=== PATIENT | male | born 1965 | race Caucasian/White ===

== ENCOUNTER → 2016-11-24 | Outpatient (CLI) | payer OTHER ==
[2014-07-09 15:06] VITALS: BP 106/79
[~2016-11-24] MED LIST: ASPI-482 PO; FENO145T PO; LIPITOR80 MG PO; OMEG-57 PO; OXYC-323 PO; UBID30CA9 PO
--- NOTE | 2016-11-24 16:27 | PCVCIMAG ---
APPROVED REPORT Exam: Stress Echocardiogram Indication: CAD Patient Location: Echo lab Stress Nurse: Claudia Garcia RN Status: routine HR: 96 bpm Rhythm: NSR Medical History Medical History: CAD non obstructive, Hyperlipidemia Cardiac Risk Factors: male over 50 yrs,, Hyperlipidemia,elevated coronary calcium score Pretest Chest Pain Characteristics: No chest pain Exercise History: Physically active Procedure The patient underwent an Exercise Stress Test using the Jayden Protocol. Blood pressure, heart rate, and EKG were monitored. An Echocardiogram was performed by airdrop systems technician in four stages in quad fashion. At peak stress, four selected images were obtained and placed side by side with resting images for comparison. Stress Test Details Stress Test: Exercise stress testing was performed using a Jayden protocol. HR Resting HR: 96 bpmMax Heart Rate (APMHR): 169 bpm Max HR Achieved: 176 bpmTarget HR (85% APMHR): 143 bpm % of APMHR: 104 Recovery HR: 105 bpm HR response to stress: Normal HR response to stress BP Resting BP: 144/84 mmHg Max BP: 182/84 mmHg Recovery BP: 142/88 mmHg ECG Resting ECG: Sinus Rhythm Stress ECG: Sinus Rhythm ST Change: Nondiagnostic ST abnormalities Arrhythmia: Rare PVC Recovery ECG: Sinus Rhythm Recovery ST Change: Non-ischemic Recovery Arrhythmia: None Clinical Reason for Termination: Maximal effort Stress Symptoms: none Exercise duration: 14 min 05 sec Highest Stage Achieved: Stage 5: 5.0 mph at 18% grade. Exercise capacity: 17.5 METs Overall Exercise Capacity for Age: Excellent Scale: Active Angina Score: None Pre-Stress Echo The resting Echocardiogram showed normal left ventricular contractility with an estimated Ejection Fraction of about 55-60%. Normal wall motion in all segments on baseline images. Post-Stress Echo The stress Echocardiogram showed normalnormal left ventricular contractility with an estimated Ejection Fraction of about 65-70%. Normal augmentation of wall motion in all segments on post stress images. Clinical No clinical or ECG evidence for ischemia. Conclusion Clinical Response: Non-ischemic Exercise Capacity: Superior Stress ECG Response: Non-ischemic Stress Echo Images: Non-ischemic
== END | disposition home or self-care (01) ==
LOC: PCVCIMAG 15:04
PROVIDERS: ATTEND Internal Medicine Cardiovascular Disease
DX: I49.3 Ventricular premature depolarization (principal); I25.10 Atherosclerotic heart disease of native coronary artery without angina pectoris; E78.00 Pure hypercholesterolemia, unspecified; J45.909 Unspecified asthma, uncomplicated; Z90.49 Acquired absence of other specified parts of digestive tract; Z79.82 Long term (current) use of aspirin
CPT/HCPCS: 36415; 93325; 93351; G0463

== ENCOUNTER → 2017-11-23 | Outpatient (CLI) | payer OTHER | END | disposition home or self-care (01) | LOC: PCVCCLINIC 15:00 | DX: I25.10 Atherosclerotic heart disease of native coronary artery without angina pectoris (principal); E78.00 Pure hypercholesterolemia, unspecified; R60.9 Edema, unspecified; R94.31 Abnormal electrocardiogram [ECG] [EKG]; Z79.82 Long term (current) use of aspirin; Z79.899 Other long term (current) drug therapy | CPT/HCPCS: 93005; G0463 ==

== ENCOUNTER → 2019-01-10 | Outpatient (CLI) | payer OTHER ==
[2014-07-09 15:06] VITALS: BP 106/79
[~2019-01-10] MED LIST changes: -OXYC-323 PO; +OXYC1TAB15 PO
--- NOTE | 2019-01-10 09:36 | PCVCIMAG ---
APPROVED REPORT Study performed: 01/10/2019 08:40:05 EXAM: Comprehensive 2D, Doppler, and color-flow Echocardiogram Patient Location: Echo lab Room #: 2Status: routine BSA: 2.39 HR: 84 bpmBP: 122/80 mmHg Rhythm: NSR Other Information Study Quality: Good Risk Factors: Cardiac Risk Factors: HTN, Hyperlipidemia Indications CAD Peripheral Edema Hypertension/HDD 2D Dimensions IVSd: 8.86 (7-11mm)LVOT Diam: 23.60 (18-24mm) LVDd: 45.21 mm PWd: 9.18 (7-11mm)Ascending Ao: 38.20 (22-36mm) LVDs: 29.52 (25-40mm) Left Atrium: 37.49 (27-40mm) Aortic Root: 27.73 mm LV Single Plane 4CH: 55.74 % LV Single Plane 2CH: 61.89 % Biplane EF: 59.1 % Volumes Left Atrial Volume (Systole) Single Plane 4CH: 56.13 mLSingle Plane 2CH: 62.29 mL Biplane LA Volume: 60.00 mLLA ESV Index: 25.00 mL/m2 Aortic Valve AoV Peak Tristan.: 1.25 m/s AO Peak Gr.: 6.24 mmHgLVOT Max P.61 mmHg LVOT Max V: 0.95 m/s ELYSE Vmax: 3.32 cm2 Mitral Valve E/A Ratio: 0.9 MV Decel. Time: 131.77 ms MV E Max Tristan.: 0.63 m/s MV A Tristan.: 0.73 m/s IVRT: 62.28 ms TDI E/Lateral E': 9.00E/Medial E': 15.75 Medial E' Tristan.: 0.04 m/s Lateral E' Tristan.: 0.07 m/s Pulmonary Valve PV Peak Tristan.: 1.33 m/sPV Peak Gr.: 7.04 mmHg Pulmonary Vein P Vein S: 0.50 m/sP Vein A: 0.32 m/s P Vein D: 0.30 m/sP Vein A Dur.: 90.0 msec P Vein S/D Ratio: 1.67 Tricuspid Valve TV Vmax: 0.52 m/s Left Ventricle The left ventricle is normal size. There is normal LV segmental wall motion. There is normal left ventricular wall thickness. Left ventricular systolic function is normal. The left ventricular ejection fraction is within the normal range. LVEF is 55-60%. Right Ventricle The right ventricle is normal size. The right ventricular systolic function is normal. Atria The left atrium size is normal. The right atrium size is normal. Aortic Valve Aortic valve is trileaflet. The aortic valve is normal in structure and function. No aortic regurgitation is present. There is no aortic valvular stenosis. Mitral Valve The mitral valve is normal in structure. There is no mitral valve regurgitation noted. No evidence of mitral valve stenosis. Tricuspid Valve The tricuspid valve is normal in structure. There is no tricuspid valve regurgitation noted. Pulmonic Valve The pulmonary valve is normal in structure. There is no pulmonic valvular regurgitation. Great Vessels The aortic root is normal in size. The ascending aorta is normal in size. Aortic arch is normal in caliber. IVC is normal in size and collapses >50% with inspiration. Pericardium There is no pericardial effusion. There is no pleural effusion. <Conclusion> The left ventricle is normal size. There is normal left ventricular wall thickness. Left ventricular systolic function is normal. The right ventricle is normal size. The left atrium size is normal. The aortic valve is normal in structure and function. There is no mitral valve regurgitation noted. There is no tricuspid valve regurgitation noted.
== END | disposition home or self-care (01) ==
LOC: PCVCIMAG 08:40
PROVIDERS: ATTEND Internal Medicine Cardiovascular Disease
DX: I25.10 Atherosclerotic heart disease of native coronary artery without angina pectoris (principal); I10 Essential (primary) hypertension; E78.00 Pure hypercholesterolemia, unspecified; J45.909 Unspecified asthma, uncomplicated; R60.9 Edema, unspecified; Z79.82 Long term (current) use of aspirin
CPT/HCPCS: 93005; 93306; G0463

== ENCOUNTER → 2021-04-14 | Outpatient (CLI) | payer OTHER ==
[2014-07-09 15:06] VITALS: BP 106/79
--- NOTE | 2021-04-14 11:31 | KCIC ---
STUDY: MRI of the left foot without contrast INDICATION: Left foot pain. COMPARISON: None. TECHNIQUE: Multiplanar MR imaging of the left foot performed without the use of intravenous contrast. FINDINGS: Bones: Minimal marrow edema without a fracture at the plantar calcaneus adjacent to the plantar fasci a origin. No fracture or marrow contusion elsewhere throughout the imaged foot or at the ankle. No hi gh-grade chondral defect at the ankle or subchondral marrow edema/cystic change. Musculotendinous: Intact and normally located flexor and peroneal tendons. No large volume tendon she ath fluid. What is seen of the Achilles is within normal limits. Unremarkable extensors. Minimal flex or digitorum brevis muscular edema proximally. Intrinsic foot muscular bulk is maintained. Ligaments: Intact medial and lateral ankle ligaments. Unremarkable spring and Lisfranc ligaments. Sinus Tarsi: Maintained fatty signal. Plantar fascia: Thickened, heterogeneous and disorganized plantar fascia central band at its origin. No fluid signal tear defect seen at the attachment on the axial T2 sequence but there is intermediate T1 signal at this location, image 16 series 4. Artifact extends through the attachment on the sagitt al STIR sequence. Miscellaneous: No large joint effusion or notable ganglion cyst. IMPRESSION: Thickened, heterogeneous and disorganized plantar fascia central band adjacent to the calcaneal attac hment. No discrete fluid signal tear defect but the extent of T1 signal loss at the origin is suspici ous for at least partial disruption on a background of chronic plantar fasciitis. The suspected tear may be chronic given the absence of significant surrounding soft tissue or marrow edema. Electronically signed by: RADHA WATTS MD (04/14/2021 11:28 AM) [id number]
== END ==
LOC: KCIC MRI 09:14
PROVIDERS: ATTEND Nurse Practitioner Family
DX: M72.8 Other fibroblastic disorders (principal); M79.672 Pain in left foot
CPT/HCPCS: 73718